=== PATIENT | female | born 1940 | race Caucasian/White ===

== ENCOUNTER → 2017-12-02 | Outpatient (CLI) | payer MEDICARE, BC ==
[~2017-12-02] MED LIST: ALPRAZOLAM ER1 MG; ANASPAZ0.125 MG SUBLING; BENEFIBER1 G1; BUDEPRION SR150 MG; CALCIUM CITRAT1 EA14; CARISOPRODOL 3350 MG; CENTRUM SILVER1 EAC1; CLONAZEPAM; CYCLOBENZAPRINE10 MG PO; DESYREL50 MG PO; DULCOLAX5 MG; FENTANYL PA25 MCG/HR TOP; HYDROCODON-ACE1 EAC5 PO; HYDROCODON-ACE1 EACH PO; MIRALAX255 GM; MIRALAX255 GM PO; MORPHINE SULFAT15 M1; NEURONTIN 300300 M1; NEURONTIN800 MG; NEURONTIN800 MG PO; NIFEDIAC CC PO; OXYCODONE HCL15 MG; PHENADOZ25 MG RC; PHENERGAN 25 MG25 M1; PRAVACHOL40 MG PO; PRILOSEC40 MG; PRISTIQ100 MG PO; PROZAC 20 MG20 M1; SOOTHE XP; SYNTHROID112 MCG PO; ZOFRAN ODT4 MG PO
== END ==
LOC: M.CT 09:15
DX: J98.4 Other disorders of lung (principal); R91.8 Other nonspecific abnormal finding of lung field; I10 Essential (primary) hypertension; K21.9 Gastro-esophageal reflux disease without esophagitis

== ENCOUNTER → 2018-03-30 | Outpatient (CLI) | payer MEDICARE, BC | LOC: M.CT 10:00 | DX: J92.9 Pleural plaque without asbestos (principal); K44.9 Diaphragmatic hernia without obstruction or gangrene; R91.8 Other nonspecific abnormal finding of lung field; Z90.49 Acquired absence of other specified parts of digestive tract ==

== ENCOUNTER → 2019-05-18 | Outpatient (CLI) | payer BC | LOC: M.CT 09:06 | DX: R91.1 Solitary pulmonary nodule (principal); I70.0 Atherosclerosis of aorta; J84.10 Pulmonary fibrosis, unspecified ==

== ENCOUNTER 2020-11-03 13:29 | Emergency (ER) | payer BC ==
[~2020-11-03] VITALS: Ht 152.4 cm; Wt 56.7 kg
[2020-11-03 14:49] LABS: URINE BILIRUBIN NEGATIVE (Negative); URINE BLOOD NEGATIVE (Negative); URINE CLARITY CLEAR; URINE COLOR YELLOW; URINE GLUCOSE-RANDOM NEGATIVE (Negative); URINE KETONES NEGATIVE (Negative); URINE LEUKOCYTES-REFLEX NEGATIVE (Negative); URINE NITRITE-REFLEX NEGATIVE (Negative); URINE PROTEIN NEGATIVE (Negative); URINE SPECIFIC GRAVITY >= 1.030 (1.005-1.030); URINE UROBILINOGEN 0.2 E.U./dl (0.2-1.0)
[2020-11-03 15:12] LABS: CALCIUM 8.4 mg/dL (8.5-10.1); CREATININE 0.9 mg/dL (0.6-1.3); HEMATOCRIT 41.8 % (37.0-47.0); MCH 32.7 pg (26.0-34.0); MCHC 33.6 g/dL (28.0-37.0); MCV 97.2 fL (80.0-100.0); NUCLEATED RBCS 1 /100WBC; PLATELET COUNT* 285 thou/uL (150-400); RDW-CV 14.6 % (10.5-14.5)
[2020-11-03 15:16] LABS: ALBUMIN 4.1 g/dL (3.4-5.0); TOTAL BILIRUBIN 0.4 mg/dL (<0.1-1.0); TOTAL PROTEIN 7.9 g/dL (6.4-8.2)
[2020-11-03 15:18] LABS: WBC 1.6 thou/uL (4.0-11.0)
[2020-11-03 15:38] LABS: ABSOLUTE MONOCYTES 0.4 thou/uL (0.0-1.2); ABSOLUTE NEUTROPHILS 0.3 thou/uL (1.6-8.1); ATYPICAL LYMPHS 16 %
[2020-11-03 15:39] LABS: PLATELET ESTIMATE ADEQUATE
[2020-11-03 17:00] VITALS: BP 141/65
--- NOTE | 2020-11-04 10:05 | EKG ---
[place] [address] ELECTROCARDIOGRAM REPORT Name: ASHLYN PANG Room: [facility]#: [id number] Admission: 11/03/20 Attend Phys: Discharge: 11/03/20 Date of : 40 Date of Service: 11/03/20 1454 Report #: [id number] THIS REPORT FOR: //name// [facility] ED Test Date: 2020-11-03 Test Time: 14:54:54 Pat Name: ASHLYN PANG Department: Room: Gender: F Social Science Professor: STUDENT : 1940 Requested By: Eliseo Calixto Order Number: [id number] MD: Margarito Musa Measurements Intervals [place] Rate: 74 P: 55 VT: 136 QRS: -46 QRSD: 105 T: 47 QT: 442 QTc: 491 Interpretive Statements Sinus rhythm Left anterior fascicular block Minimal ST depression, lateral leads Borderline prolonged QT interval Compared to ECG 04/25/2012 18:35:20 Left ventricular hypertrophy no longer present ST (T wave) deviation still present Electronically Signed On 11-04-2020 10:05:10 CDT by Margarito Musa [email or web address] <ELECTRONICALLY SIGNED> By: Margarito Musa MD, FAC 11/04/20 1005 1454 1454 Margarito Musa MD, [facility] /EPI
== END 2020-11-03 17:00 | disposition home or self-care (01) ==
LOC: M.ERS 13:29
PROVIDERS: Family Medicine
DX: N39.9 Disorder of urinary system, unspecified (principal); R33.9 Retention of urine, unspecified; I10 Essential (primary) hypertension; K21.9 Gastro-esophageal reflux disease without esophagitis; F17.210 Nicotine dependence, cigarettes, uncomplicated; Z88.5 Allergy status to narcotic agent; Z91.09 Other allergy status, other than to drugs and biological substances

== ENCOUNTER 2020-11-07 04:26 | Inpatient (IN) | payer BC ==
[~2020-11-07] VITALS: Ht 149.9 cm; Wt 61.0 kg
[2020-11-07] VITALS (7 sets, daily range): BP systolic 50–138; BP diastolic 20–57
--- NOTE | ~2020-11-07 | CON ---
[facility] [address] [place] [address] CONSULTATION Name: ASHLYN PANG Room: [address] IN M.R.#: [id number] Admission: 11/07/20 Attend Phys: Rosanna Peoples Discharge: Date of : 40 Report #: [id number] THIS REPORT FOR: cc: Davion Chawla MD, Thomas MD Khan,Joanna Manning MD ~ DATE OF CONSULTATION: 11/08/2020 REASON FOR CONSULTATION: Acute kidney injury. HISTORY OF PRESENT ILLNESS: An 80-year-old female who was admitted with nausea, vomiting, and severe abdominal discomfort. There is concern for possible ischemia. Her C. diff was found to be positive. She is being followed by surgery. I am asked to see her because her creatinine is elevated at 1.6, it was 0.9 on 11/03, it has remained stable. She is currently requiring vasopressor and has had reduced urine output. REVIEW OF SYSTEMS: Limited to chart review, constitutional, psych, heme, eyes, ENT, respiratory, cardiac, GI, , endocrine, all negative except as documented above and as best can be ascertained. 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 FAMILY HISTORY: Nonpertinent for this 80-year-old female. CURRENT MEDICATIONS: Reviewed. SOCIAL HISTORY: Lives in [place], retired. PHYSICAL EXAMINATION: VITAL SIGNS: Blood pressure 110/42, pulse 114, temperature 37.8. GENERAL: No acute distress. HEENT: Eyes closed. Ears externally normal. CARDIAC: Tachycardic. LUNGS: Diminished. ABDOMEN: Soft. MUSCULOSKELETAL: Nontender. PSYCHIATRIC: Unable to evaluate. LABORATORY DATA: White cell count 19.3, hemoglobin 11.3, platelets 170. Sodium 144, potassium 3.7, chloride 111, bicarbonate 21, BUN 65, creatinine 2.8, glucose 132, calcium 6.2, magnesium 1.5, albumin 1.4. ASSESSMENT AND PLAN: [place] [address] CONSULTATION Name: ASHLYN PANG Room: [address] IN .R.#: [id number] Admission: 11/07/20 Attend Phys: Rosanna Peoples Discharge: Date of : 40 Report #: [id number] 1. Acute kidney injury in the setting of hypotension and shock with admission creatinine of 1.6. It was 1.6 on 11/08, on 11/03, creatinine was 0.9. UA noted for hematuria and proteinuria. On 11/07, CT, kidneys were okay. 2. Low CO2 with an ABG of 7.39, 31 and 19, reflective of a metabolic acidosis. 3. Clostridium difficile positive. 4. Pulmonary infiltrates. 5. History of lymphoma. 6. Anxiety/depression. 7. History of ____. 8. Hypoalbuminemia with an albumin of 2.7. 9. Hematuria and proteinuria, on urinalysis. 10. Hypothyroidism. PLAN: The patient is oliguric. Creatinine is stable. On antibiotics. Check CK. Currently on IV fluids with sodium bicarbonate. A repeat ABG has been ordered. I did discuss the case with Dr. Alfaro. She is receiving a heavy dose of bicarbonate with her IV fluids and from my standpoint, this could be cut in half. No other recommendations at this time. We will follow along with you. Thank you for requesting my opinion in the care and management of this patient. By: 1519 [id number] Coreas MD /nt
--- NOTE | ~2020-11-07 | CON ---
[address] [address] CONSULTATION Name: BIRDASHLNY MAYEN Room: [address] IN M.R.#: [id number] Admission: 11/07/20 Attend Phys: Rosanna Peoples Discharge: Date of : 40 Report #: [id number] THIS REPORT FOR: cc: Davion Chawla MD,Balaji Arora MD, MD ~ DATE OF CONSULTATION: 11/08/2020 REQUESTING PHYSICIAN: Dr. Alex Arita. INDICATION FOR CONSULTATION: Acute hypoxemic respiratory failure/sepsis. HISTORY OF PRESENT ILLNESS: This is an 80-year-old female with past medical history as mentioned below. This does include an extensive history of smoking. He also has lymphoma. I am not aware of a previous diagnosis of COPD. At this time, the patient is admitted with nausea, vomiting, diarrhea and severe abdominal pain. Initially, she was on 5 liters of oxygen via nasal cannula. Since the patient has been seen by the GI as well as surgery services, there has been a progressive decline in her respiratory status as well as blood pressure. Currently, she is requiring 25-30 of Levophed to maintain blood pressure. She is also on 100% FIO2 to maintain O2 saturation. We have endotracheally intubated her. She is currently on 5 of PEEP. The patient reports that she was vaccinated for COVID-19. The patient is unable to provide a further history or review of systems. PAST MEDICAL HISTORY: Squamous cell carcinoma, known to me what site; varicose veins, status post vein stripping; lymphoma; hypertension; GERD; thyroid disease; fibromyalgia; osteoarthritis; bursitis. SOCIAL HISTORY: There is an extensive history of smoking. She still smokes. No known history of heavy alcohol use or illegal drug use. CURRENT MEDICATIONS: List in [employer] reviewed. HOME MEDICATIONS: List also in [employer] reviewed. ALLERGIES: MORPHINE, CODEINE, BAND-AIDS AND TAPE ARE MENTIONED ALLERGIES. FAMILY HISTORY: No pertinent family history known at this time. PHYSICAL EXAMINATION: GENERAL: The patient was initially in respiratory distress, not able to provide any history. We went ahead and [place] [address] CONSULTATION Name: HARISHALTAGRACIAASHLYNNELDA MAYEN Room: [address] IN [facility]#: [id number] Admission: 11/07/20 Attend Phys: Rosanna Peoples Discharge: Date of : 40 Report #: [id number] VITAL SIGNS: Currently on a tidal volume of 500 with AC rate of 12, FiO2 100% and PEEP of 5. She is saturating 93%. She is tachycardic, heart rate is 120, her respiratory rate is elevated to around 35 with a temperature of 37.8. HEENT: Head is normocephalic and atraumatic. There is an endotracheal tube as well as OG in place. NECK: Does not show raised JVP, asymmetry, mass or lymph nodes. CHEST: Symmetrical expansion on inspection and palpation. On auscultation, breath sounds are bilaterally equal, I do not hear any added sounds. HEART: Regular. There is no murmur. Tachycardia noted. ABDOMEN: Significantly distended. No obvious tenderness at this time. EXTREMITIES: Lower extremities show no edema, no calf tenderness. SKIN: Dry and intact. NEUROLOGIC: She did move all extremities bilaterally equally and spontaneously with no focal deficit identified. LABORATORY DATA: The patient's lab work is in [facility]. This is reviewed. Note that her creatinine is elevated to 1.6. The patient's chest x-rays are reviewed. She does have infiltrates in the right middle lobe. She is reported to have also aspirated while she was being endotracheally intubated. Lab work in [facility] reviewed. Her COVID-19 PCR is pending. The C. difficile toxin by PCR is positive. ASSESSMENT AND PLAN: 1. Acute hypoxemic respiratory failure. ET tube adjusted. We will go ahead and obtain an arterial blood gas and then readjust the ventilator. I will be inclined to cut back on tidal volume. Considering significant abdominal distention and severe hypotension, I am initially starting her on a Versed drip with p.r.n. Versed and fentanyl instead of first using fentanyl. We can add fentanyl later. 2. Sepsis with C. difficile septic shock with C. difficile colitis. Started her on Flagyl IV. Currently, we have large amount of output from the OG. If this stops, we would recommend starting oral vancomycin. 3. Aspiration pneumonia. The patient had infiltrates prior to intubation as well as she is reported to have aspirated during the intubation also. I continued with Zosyn. Considering that she has C. difficile colitis, I decided to discontinue Levaquin. We will review further and then decide as to whether MRSA coverage should be considered. I am inclined to continue some atypical coverage considering her chest x-ray findings. The patient is currently on erythromycin per the GI service. We will check with GI if they want to continue; otherwise, I will be inclined to start Zithromax. 4. Smoker/possible bronchospasm. For now, we will go ahead and give her Solu-Medrol as well as nebulized bronchodilators. 5. Acute renal insufficiency/rule out ischemic colitis. The patient obviously is higher than average risk for IV dye administration. I would defer risk [facility] [address] [place] [address] CONSULTATION Name: ASHLYN PANG Room: [address] ADM IN M.R.#: [id number] Admission: 11/07/20 Attend Phys: Rosanna Peoples Discharge: Date of : 40 Report #: [id number] versus benefit of obtaining a CT angiogram of abdomen and pelvis to the surgery service and I did speak to their resident. 6. GI prophylaxis, already on Protonix, switched to IV. 7. Probiotic. If able to, then we will consider starting a probiotic. 8. Evaluation of cardiac function. We will also do an echo. The patient is critically ill at this time. Total time spent providing critical care to this patient today exceeds 45 minutes. By: 1447 [id number] Alfaro MD /nt
[~2020-11-07 04:26] MED LIST changes: +DESYREL150 MG PO; -DESYREL50 MG PO; +MIRALAX17 G1 PO; -MIRALAX255 GM PO; +PRILOSEC OTC20 MG PO; -PRILOSEC40 MG; +SYNTHROID112 MC1 PO; -SYNTHROID112 MCG PO
[2020-11-07 05:19] LABS: ABSOLUTE LYMPHOCYTES 0.4 thou/uL (0.8-5.3); ABSOLUTE MONOCYTES 0.5 thou/uL (0.0-1.2); ABSOLUTE NEUTROPHILS 5.5 thou/uL (1.6-8.1); BASOPHILS 0.3 %; HEMATOCRIT 37.5 % (37.0-47.0); HEMOGLOBIN 12.3 gm/dL (12.0-15.0); LYMPHOCYTES 6.6 %; MCH 31.8 pg (26.0-34.0); MCHC 32.7 g/dL (28.0-37.0); MCV 97.2 fL (80.0-100.0); MONOCYTES 7.6 %; MPV 8.3 fl. (7.2-11.1); NUCLEATED RBCS 0 /100WBC; PLATELET COUNT* 246 thou/uL (150-400); POLYS 85.5 %; RBC 3.86 mil/uL (4.20-5.00); RDW-CV 14.5 % (10.5-14.5); WBC 6.5 thou/uL (4.0-11.0)
[2020-11-07 05:23] LABS: CALCIUM 8.4 mg/dL (8.5-10.1); CREATININE 1.6 mg/dL (0.6-1.3); POTASSIUM 3.5 mmol/L (3.5-5.1)
[2020-11-07 05:28] LABS: ALBUMIN 2.7 g/dL (3.4-5.0); TOTAL BILIRUBIN 1.1 mg/dL (<0.1-1.0); TOTAL PROTEIN 6.3 g/dL (6.4-8.2)
[2020-11-07 05:34] LABS: URINE BLOOD 1+ (Negative); URINE CLARITY CLEAR; URINE COLOR YELLOW; URINE GLUCOSE-RANDOM NEGATIVE (Negative); URINE KETONES TRACE (Negative); URINE LEUKOCYTES-REFLEX NEGATIVE (Negative); URINE NITRITE-REFLEX NEGATIVE (Negative); URINE PROTEIN 2+ (Negative); URINE SPECIFIC GRAVITY 1.025 (1.005-1.030)
[2020-11-07 05:36] LABS: ICTOTEST (BILI CONFIRMATORY) Negative (Negative); URINE BILIRUBIN 1+ (Negative)
[2020-11-07 05:42] LABS: BACTERIA-REFLEX 1-9 Few /HPF (None Seen); MUCUS 0-3 Light strn/LPF (None Seen); SQUAMOUS 0-3 Few /LPF (0-3); URINE RBC 3-10 Few /HPF (0-2); URINE WBC-REFLEX 0-5 Rare /HPF (0-5)
[2020-11-07 05:43] LABS: AMORPHOUS URATES Many /LPF (None Seen); CASTS None Seen /LPF (None Seen)
--- NOTE | 2020-11-07 10:23 | EKG ---
[place] [address] ELECTROCARDIOGRAM REPORT Name: ASHLYN PANG Room: [facility]-9 ADM IN .R.#: [id number] Admission: 11/07/20 Attend Phys: Yohannes Rashid Discharge: Date of : 40 Date of Service: 11/07/20 0509 Report #: [id number] THIS REPORT FOR: //name// [facility] ED Test Date: 2020-11-07 Test Time: 05:09:10 Pat Name: ASHLYN PANG Department: Room: [facility] Gender: F Obstetrics Nurse: TB : 1940 Requested By: Elaine Murillo Order Number: [id number] MD: Margarito Musa Measurements Intervals [place] Rate: 96 P: 66 HI: 141 QRS: -38 QRSD: 100 T: 60 QT: 368 QTc: 465 Interpretive Statements Sinus rhythm Probable left atrial enlargement LVH with secondary repolarization abnormality Compared to ECG 11/03/2020 14:54:54 no change Electronically Signed On 11-07-2020 10:23:18 CDT by Margarito Musa [email or web address] <ELECTRONICALLY SIGNED> By: Margarito Musa MD, [facility] 11/07/20 1023 0509 0509 Margarito Musa MD, [facility] /EPI
--- NOTE | 2020-11-07 11:53 | NUR ---
cm spk with pt's dtr, kofi, as pt is PUI. pt lives in [facility]. pt's family tries to "encourage" pt to be active. pt does participate in activities at the facility / kofi. pt uses a walker. pt is independent with adls. pt has hx with [facility], but kofi doesnt recall which agency. pt has hx with [facility] "many years ago" and hx with [facility]. cm to cont to follow.
[2020-11-07] MEDS ORDERED: VITAMIN B-12500 MCG PO (17:37)
[2020-11-07] MEDS ORDERED: CARAFATE 1 GM TA1 GM PO (17:38)
[2020-11-07] MEDS ORDERED: FAMOTIDINE 20 M20 MG PO (17:38)
[2020-11-07] MEDS ORDERED: ASA81BEC PO (17:39)
[2020-11-07] MEDS ORDERED: LEVO-T100 MCG PO (17:39)
[2020-11-07] MEDS ORDERED: SUPER THERAVIT1 EACH PO (17:40)
[2020-11-07] MEDS ORDERED: NIFEDIPINE ER90 M1 PO (17:41)
[2020-11-07] MEDS ORDERED: DULOXETINE HCL60 MG PO (17:42)
[2020-11-07] MEDS ORDERED: DULOXETINE HCL30 MG PO (17:42)
[2020-11-07] MEDS ORDERED: PREVACID30 MG PO (17:43)
[2020-11-07] MEDS ORDERED: SEROQUEL 25 MG25 MG PO ×2 (17:45)
[2020-11-07] MEDS ORDERED: SEROQUEL 100 M100 M1 PO (17:46)
[2020-11-07] MEDS ORDERED: NEURONTIN 400400 M1 PO (17:46)
[2020-11-07] MEDS ORDERED: LIPITOR 20 MG T20 M1 PO (17:47)
[2020-11-07] MEDS ORDERED: VITAMIN D3-ALO1 EACH PO (17:48)
[2020-11-07] MEDS ORDERED: RIVASTIGMINE1.5 MG PO (17:49)
[2020-11-07] MEDS ORDERED: MYRBETRIQ25 MG PO (17:49)
[2020-11-07] MEDS ORDERED: FIBER LAX625 MG PO (17:51)
[2020-11-07] MEDS ORDERED: LINZESS145 MCG PO (17:52)
[2020-11-07] MEDS ORDERED: COLACE100 MG PO (18:01)
--- NOTE | 2020-11-07 20:12 | NUR ---
Pt alert, and answers some orientation questions, but also seems to be having trouble concentrating and finding the right words. She is anxious, expressed that she is afraid of getting COVID. Pt's rapid screen for COVID was negative; PCR is pending. C. diff. culture sent after patient had small loose stool. Pt is poor historian. She is also impulsive. She has not attempted to get out of bed this shift, but she has pulled at IV tubing (near pump rather than near insertion site) and removes her O2 sensor intermittently. C/O abdominal pain, and abdomen is firm and distended. One dose fentanyl given today (see MAR) for pain rated 10/10. Pt seen by GI (Dr. Vaughn) and surgery (Dr. Duong, vice president tax). Pt on clear liquid diet, but has had only sips of H2O and one bite of jello. VSS, but desats when pt removes O2 NC. Pt's dtr called this afternoon for an update on pt. Also got some historical info as well as an up-to-date list of medications from dtr. Pt has IV to LAC. Multiple attempts made to place another IV but unable to do so. Shin draining dk yellow/jaswinder urine. IVF infusing. Will continue to monitor.
[2020-11-08] VITALS (25 sets, daily range): BP systolic 50–120; BP diastolic 20–66
--- NOTE | 2020-11-08 03:59 | NUR ---
ASSUMED PT CARE AT APPROX 1930. PT IS AWAKE, ORIENTED TO SELF. CONFUSED MOST OF THE TIME. PT ISTRACING ST ON THE HEDDLER TIER. PT IS TACHYPNEIC, DESATURATES WITH ACTIVITY, INCREASED O2 SUPPORT TO 12L ON HFNC TO MAINTAIN spO2 >90%. HYPOTENSION NOTED AT APPROX 2350: BP 50/20, HR 121 RR 30 spO2 92%. 1830ml OF NS BOLUS GIVEN PER DR PEREZ. REPEAT VS CHARTED. DR PEREZ UPDATED OF PT'S LATEST VS. DR PEREZ AWARE THAT PT IS STILL HYPOTENSIVE. PT IS KEPT CLOSELY MONITORED.
[2020-11-08 04:40] LABS: CALCIUM 7.1 mg/dL (8.5-10.1); CREATININE 1.6 mg/dL (0.6-1.3); POTASSIUM 3.9 mmol/L (3.5-5.1)
[2020-11-08 05:05] LABS: HEMATOCRIT 35.9 % (37.0-47.0); HEMOGLOBIN 11.9 gm/dL (12.0-15.0); MCH 32.6 pg (26.0-34.0); MCV 98.7 fL (80.0-100.0); MPV 9.2 fl. (7.2-11.1); NUCLEATED RBCS 0 /100WBC; PLATELET COUNT* 181 thou/uL (150-400); RBC 3.64 mil/uL (4.20-5.00); RDW-CV 14.9 % (10.5-14.5); WBC 10.2 thou/uL (4.0-11.0)
[2020-11-08 05:50] LABS: ABSOLUTE LYMPHOCYTES 0.5 thou/uL (0.8-5.3); ABSOLUTE MONOCYTES 0.4 thou/uL (0.0-1.2); ABSOLUTE NEUTROPHILS 9.3 thou/uL (1.6-8.1); PLATELET ESTIMATE ADEQUATE; TOXIC GRANULATION 3+
[2020-11-08 05:51] LABS: ANISOCYTOSIS 1+; POIKILOCYTOSIS 1+; POLYCHROMASIA 1+
[2020-11-08 05:53] LABS: OVALOCYTES Occasional
[2020-11-08 09:30] LABS: BE -5.2 mmol/L (-2 to +3); PCO2 31.9 mmHg (35.0-45.0)
[2020-11-08 09:32] LABS: PO2 56.9 mmHg (75.0-100.0)
--- NOTE | 2020-11-08 14:52 | NUR ---
Covid positive. Anticipate dc in a few days. On 12L o2. Not doing well, trying to place line. CM to contact family to determine if Pt has a DPOA, Pt currently unable to complete one.
[2020-11-08 15:39] LABS: BE -5.6 mmol/L (-2 to +3); PCO2 34.4 mmHg (35.0-45.0); PO2 66.6 mmHg (75.0-100.0)
[2020-11-08 15:48] LABS: HEMATOCRIT 34.3 % (37.0-47.0); HEMOGLOBIN 11.3 gm/dL (12.0-15.0); MCH 31.9 pg (26.0-34.0); MCHC 32.9 g/dL (28.0-37.0); MCV 97.1 fL (80.0-100.0); MPV 9.6 fl. (7.2-11.1); NUCLEATED RBCS 0 /100WBC; PLATELET COUNT* 170 thou/uL (150-400); RBC 3.53 mil/uL (4.20-5.00); RDW-CV 14.7 % (10.5-14.5); WBC 19.3 thou/uL (4.0-11.0)
[2020-11-08 15:53] LABS: CALCIUM 6.2 mg/dL (8.5-10.1); CREATININE 2.8 mg/dL (0.6-1.3); POTASSIUM 3.7 mmol/L (3.5-5.1)
[2020-11-08 15:57] LABS: ALBUMIN 1.4 g/dL (3.4-5.0); MAGNESIUM 1.5 mg/dL (1.8-2.4); TOTAL BILIRUBIN 1.8 mg/dL (<0.1-1.0); TOTAL PROTEIN 4.8 g/dL (6.4-8.2)
[2020-11-08 16:02] LABS: APTT 61.3 Seconds (25.0-31.3); INR 1.3; PROTIME 13.4 Seconds (9.20-11.50)
[2020-11-08 16:47] LABS: ABSOLUTE LYMPHOCYTES 0.4 thou/uL (0.8-5.3); ABSOLUTE MONOCYTES 1.2 thou/uL (0.0-1.2); ABSOLUTE NEUTROPHILS 17.8 thou/uL (1.6-8.1); MACROCYTES Occasional; PLATELET ESTIMATE ADEQUATE; TOXIC GRANULATION 1+
[2020-11-08 16:49] LABS: LARGE PLATELETS OCCASIONAL
--- NOTE | 2020-11-08 17:35 | 2DMMODE ---
[place] [address] 2 D/M-MODE ECHOCARDIOGRAM Name: HARISHALTAGRACIAASHLYNNELDA MAYEN Room: [address] ADM IN .R.#: [id number] Admission: 11/07/20 Attend Phys: Yohannes Rashid Discharge: Date of : 40 Date of Service: 11/08/20 1735 Report #: [id number] THIS REPORT FOR: cc: Davion Chawla MD, Thomas MD Blick,Margarito Manning MD [facility] ~ ADDENDUM APPROVED REPORT Study performed: 11/08/2020 15:58:07 EXAM: Comprehensive 2D, Doppler, and color-flow Echocardiogram Patient Location: In-Patient Room #: 113 Status: 96 HR: 113 bpm BP: 96/33 mmHg Rhythm: NSR Other Information Study Quality: Good Indications Septic Shock 2D Dimensions IVSd: 9.70 (7-11mm) LVOT Diam: 20.31 (18-24mm) LVDd: 37.09 mm PWd: 9.07 (7-11mm) Ascending Ao: 29.36 (22-36mm) LVDs: 26.24 (25-40mm) Aortic Root: 30.26 mm Aortic Valve AoV Peak Daniel.: 1.50 m/s AO Peak Gr.: 8.97 mmHg LVOT Max P.19 mmHg AO Mean Gr.: 5.22 mmHg LVOT Mean P.30 mmHg LVOT Max V: 1.02 m/s AO V2 VTI: 16.61 cm LVOT Mean V: 0.71 m/s MEMO (VTI): 2.70 cm2 LVOT V1 VTI: 13.87 cm Mitral Valve E/A Ratio: 0.62 MV Decel. Time: 222.55 ms MV E Max Daniel.: 0.65 m/s MV PHT: 64.54 [place] [address] 2 D/M-MODE ECHOCARDIOGRAM Name: ASHLYN PANG Room: [address] IN .R.#: [id number] Admission: 11/07/20 Attend Phys: Yohannes Rashid Discharge: Date of : 40 Date of Service: 11/08/20 1735 Report #: [id number] MVA (PHT): 3.41 cm2 TDI E/Lateral E': 5.00 Lateral E' Daniel.: 0.13 m/s Pulmonary Valve PV Peak Daniel.: 1.47 m/s PV Peak Gr.: 8.65 mmHg Tricuspid Valve RAP Estimate: 5.00 mmHg TR Peak Gr.: 34.23 mmHg RVSP: 39.00 mmHg PA Pressure: 39.00 mmHg Left Ventricle The left ventricle is normal size. There is normal LV segmental wall motion. There is normal left ventricular wall thickness. Left ventricular systolic function is normal. The left ventricular ejection fraction is within the normal range. LVEF is 55-60%. Grade I - abnormal relaxation pattern. Right Ventricle The right ventricle is normal size. The right ventricular systolic function is normal. Atria The left atrium size is normal. The right atrium size is normal. Aortic Valve The aortic valve is normal in structure. No aortic regurgitation is present. There is no aortic valvular stenosis. Mitral Valve The mitral valve is normal in structure. There is no mitral valve regurgitation noted. No evidence of mitral valve stenosis. Tricuspid Valve The tricuspid valve is normal in structure. Mild tricuspid regurgitation. Mild pulmonary hypertension. Pulmonic Valve The pulmonary valve is normal in structure. Trace pulmonic regurgitation[place] [address] 2 D/M-MODE ECHOCARDIOGRAM Name: ASHLYN PANG Room: [address] IN [facility]#: [id number] Admission: 11/07/20 Attend Phys: Yohannes Rashid Discharge: Date of : 40 Date of Service: 11/08/20 1735 Report #: [id number] The aortic root is normal in size. IVC is normal in size and collapses >50% with inspiration. Pericardium There is no pericardial effusion. <Conclusion> Mild tricuspid regurgitation. Mild pulmonary hypertension. LVEF is 55-60%. <ELECTRONICALLY SIGNED> By: Margarito Musa MD, FAC 11/08/20 1735 [id number] Margarito Musa MD, FACC /INF
--- NOTE | 2020-11-09 01:10 | NUR ---
ASSUMED PATIENT CARE AT 1900. PATIENT ON COMFORT CARE. MORPHINE DRIP STARTED. ET TUBE DISCONTINUED AT 2099. PATIENT AT 2141, FAMILY AT BEDSIDE.
== END 2020-11-08 21:42 | DRG 871 ==
LOC: M.ERS 04:26 → M.TBA-ER 07:01 → M.ORTHSURG 07:01 → M.ICU 11-08 14:10
PROVIDERS: Emergency Medicine; Internal Medicine; Internal Medicine Critical Care Medicine; ADMIT Internal Medicine; ATTEND Internal Medicine
PROC: 5A0935A Assistance with Respiratory Ventilation, Less than 24 Consecutive Hours, High Flow/Velocity Cannula (ICD-10-PCS; principal; 2020-11-07)
PROC: 05PYX3Z Removal of Infusion Device from Upper Vein, External Approach (ICD-10-PCS; 2020-11-08)
PROC: 5A1935Z Respiratory Ventilation, Less than 24 Consecutive Hours (ICD-10-PCS; 2020-11-08)
PROC: 02HV33Z Insertion of Infusion Device into Superior Vena Cava, Percutaneous Approach (ICD-10-PCS; 2020-11-08)
PROC: 5A09357 Assistance with Respiratory Ventilation, Less than 24 Consecutive Hours, Continuous Positive Airway Pressure (ICD-10-PCS; 2020-11-08)
PROC: 0BH17EZ Insertion of Endotracheal Airway into Trachea, Via Natural or Artificial Opening (ICD-10-PCS; 2020-11-08)
PROC: B548ZZA Ultrasonography of Superior Vena Cava, Guidance (ICD-10-PCS; 2020-11-08)
DX: A41.9 Sepsis, unspecified organism (principal); J96.01 Acute respiratory failure with hypoxia; N17.0 Acute kidney failure with tubular necrosis; J69.0 Pneumonitis due to inhalation of food and vomit; R65.21 Severe sepsis with septic shock; K65.9 Peritonitis, unspecified; K55.059 Acute (reversible) ischemia of intestine, part and extent unspecified; G92 Toxic encephalopathy; D66 Hereditary factor VIII deficiency; A04.72 Enterocolitis due to Clostridium difficile, not specified as recurrent; K55.9 Vascular disorder of intestine, unspecified; I10 Essential (primary) hypertension; K21.9 Gastro-esophageal reflux disease without esophagitis; M19.90 Unspecified osteoarthritis, unspecified site; F41.9 Anxiety disorder, unspecified; F32.9 Major depressive disorder, single episode, unspecified; E86.0 Dehydration; E03.9 Hypothyroidism, unspecified; I95.9 Hypotension, unspecified; R31.9 Hematuria, unspecified; E88.09 Other disorders of plasma-protein metabolism, not elsewhere classified; F17.210 Nicotine dependence, cigarettes, uncomplicated; Z20.822 Contact with and (suspected) exposure to COVID-19; M79.7 Fibromyalgia; G89.29 Other chronic pain; M54.9 Dorsalgia, unspecified; Z98.2 Presence of cerebrospinal fluid drainage device; Z90.710 Acquired absence of both cervix and uterus; Z85.72 Personal history of non-Hodgkin lymphomas; Z88.6 Allergy status to analgesic agent; Z88.8 Allergy status to other drugs, medicaments and biological substances; Z51.5 Encounter for palliative care; Z66 Do not resuscitate